=== PATIENT | female | born 1980 | race Caucasian/White ===

== ENCOUNTER 2016-09-13 19:05 | Observation (INO) | payer OTHER ==
[2016-09-13] MEDS ORDERED: PREN1TAB80 PO (20:34)
[2016-09-13 21:18] VITALS: BP_SYST 109; BP_DIAS 65; BP_DIAS 75
== END 2016-09-13 21:15 | disposition home or self-care (01) ==
LOC: 4S 19:05
PROVIDERS: ADMIT Obstetrics & Gynecology; ATTEND Obstetrics & Gynecology
DX: O62.9 Abnormality of forces of labor, unspecified (principal); O46.93 Antepartum hemorrhage, unspecified, third trimester; Z3A.34 34 weeks gestation of pregnancy
CPT/HCPCS: 59025; G0378